=== PATIENT | male | born 1960 | race Caucasian/White ===

== ENCOUNTER 2017-01-31 10:23 | Day surgery (SDC) | payer OTHER ==
[~2017-01-31] VITALS: Ht 170.2 cm; Wt 47.7 kg
[~2017-01-31 10:23] MED LIST: Advair 250/50 Diskus IH; BACTRIM,SEPT1 TABLET PO; Habitrol,Nicoderm CQ TD; Levaquin PO; Maxipime IV; PENNSAID112 GM TP; PREDNISONE1 MG PO; PREDNISONE10 MG PO; PROVENTIL HFA6.7 GM IH; Phenergan W/Codeine PO; Proventil,Ventolin H IH; QVAR 80 MCG IN7.3 GM IH; ROBITUSSIN AC,T10 ML PO; SPIRIVA1 INHALATI IH; ZYRTEC10 M2 PO; predniSONE PO
[2017-01-31 10:48] VITALS: BP 114/84
[2017-01-31 12:40] VITALS: BP 81/54
[2017-01-31 13:35] VITALS: BP 94/67
== END 2017-01-31 13:35 | disposition home or self-care (01) ==
LOC: SDC 10:23
PROC: 01N53ZZ Release Median Nerve, Percutaneous Approach (ICD-10-PCS; principal; 2017-01-31)
DX: G56.01 Carpal tunnel syndrome, right upper limb (principal); J44.9 Chronic obstructive pulmonary disease, unspecified; M19.90 Unspecified osteoarthritis, unspecified site; J45.909 Unspecified asthma, uncomplicated; F17.200 Nicotine dependence, unspecified, uncomplicated; Z68.1 Body mass index [BMI] 19.9 or less, adult
CPT/HCPCS: J0690; J2250; S0020

== ENCOUNTER 2017-02-11 20:17 | Inpatient (IN) | payer OTHER ==
[~2017-02-11] VITALS: Ht 170.2 cm; Wt 45.0 kg
[2017-02-11 20:41] LABS: MCH 28.2 PG (29.0-34.0); MCHC 31.6 G/DL (30.0-36.0); MCV 89.2 FL (86-99); MEAN PLAT.VOLUME 8.5 uM^3 (9.0-12.4); PLATELET COUNT 437 K/uL (156-360); RBC DIS.WIDTH-CV 15.9 % (11.8-14.6); RED BLOOD COUNT 4.82 M/uL (4.00-5.50)
[2017-02-11 20:42] LABS: CARBON DIOXIDE (BICARBONATE) 36.2 MEQ/L (20-31)
[2017-02-11 20:44] LABS: WHITE BLOOD COUNT 12.6 K/uL (4.1-10.2)
[2017-02-11 20:55] LABS: CHLORIDE 97 mEq/L (99-109); POTASSIUM 3.9 mEq/L (3.7-5.4); SODIUM 139 mEq/L (136-147)
[2017-02-11 20:57] LABS: GLUCOSE 162 mg/dL (70-99)
[2017-02-11 20:58] LABS: ANION GAP 11 MEQ/L (2-14)
[2017-02-11 21:01] LABS: GFR ESTIMATE (CALCULATED) > 59 mL/min/
[2017-02-11 21:02] LABS: UREA NITROGEN (BUN) 18 mg/dL (9-23)
[2017-02-11 21:09] LABS: TROP-I INTERPRETATION NEGATIVE; TROPONIN-I 0.01 ng/mL (0.0-0.30)
[2017-02-11] MEDS ORDERED: SPIRIVA1 INHALATI IH (21:39)
[2017-02-11] MEDS ORDERED: PROVENTIL HFA6.7 GM IH (21:39)
[2017-02-11] MEDS ORDERED: PREDNISONE10 MG PO ×2 (21:40→21:41)
[2017-02-11] MEDS ORDERED: LEVAQUIN750 MG PO (21:41)
[2017-02-12 03:43] VITALS: BP 98/65
[2017-02-12 04:52] LABS: HEMATOCRIT 35.9 % (38.0-50.0); MCH 27.8 PG (29.0-34.0); MCHC 30.9 G/DL (30.0-36.0); MEAN PLAT.VOLUME 8.5 uM^3 (9.0-12.4); PLATELET COUNT 349 K/uL (156-360); RBC DIS.WIDTH-CV 15.9 % (11.8-14.6); RED BLOOD COUNT 3.99 M/uL (4.00-5.50); WHITE BLOOD COUNT 9.7 K/uL (4.1-10.2)
[2017-02-12 05:05] LABS: CHLORIDE 103 mEq/L (99-109); POTASSIUM 4.2 mEq/L (3.7-5.4); SODIUM 137 mEq/L (136-147)
[2017-02-12 05:07] LABS: GLUCOSE 187 mg/dL (70-99)
[2017-02-12 05:08] LABS: ANION GAP 6 MEQ/L (2-14)
[2017-02-12 05:11] LABS: GFR ESTIMATE (CALCULATED) > 59 mL/min/
[2017-02-12 05:12] LABS: UREA NITROGEN (BUN) 17 mg/dL (9-23)
[2017-02-12 08:15] VITALS: BP 90/60
[2017-02-12 11:53] VITALS: BP 101/65
[2017-02-12 15:46] VITALS: BP 100/58
[2017-02-12 20:09] VITALS: BP 100/59
[2017-02-12 23:59] VITALS: BP 105/62
[2017-02-13 03:48] VITALS: BP 125/79
[2017-02-13 07:51] VITALS: BP 103/66
[2017-02-13] MEDS ORDERED: CEFTIN500 MG PO (11:24)
[2017-02-13] MEDS ORDERED: OXYCODONE-APAP1 EACH PO (11:24)
[2017-02-13 11:27] VITALS: BP 111/62
== END 2017-02-13 12:30 | disposition home or self-care (01) | DRG 190 ==
LOC: EME 20:17 → EDOF 02-12 01:25 → 3EAST 02-12 03:26
PROVIDERS: Emergency Medicine; Family Medicine
DX: J44.1 Chronic obstructive pulmonary disease with (acute) exacerbation (principal); J96.00 Acute respiratory failure, unspecified whether with hypoxia or hypercapnia; J84.10 Pulmonary fibrosis, unspecified; E78.5 Hyperlipidemia, unspecified; F17.200 Nicotine dependence, unspecified, uncomplicated
CPT/HCPCS: 71010; 80048; 82803; 83605; 83880; 84484; 85027; 87040; 93005; 94002; 94640; 94640 76; 94799; 99202; 99281; 99284; J1100; J2930; J7030

== ENCOUNTER 2017-02-20 02:41 | Inpatient (IN) | payer OTHER ==
[~2017-02-20] VITALS: Ht 170.2 cm; Wt 45.3 kg
[~2017-02-20 02:41] MED LIST changes: +CEFTIN500 MG PO; +LEVAQUIN750 MG PO; +OXYCODONE-APAP1 EACH PO
[2017-02-20 03:17] LABS: EOSINOPHIL (%) 0.6 % (0-5); EOSINOPHIL COUNT 0.1 K/uL (0-0.3); HEMATOCRIT 40.3 % (38.0-50.0); IMMATURE GRANULOCYTE (%) 0.7 % (0.0-0.7); IMMATURE GRANULOCYTE COUNT 0.1 K/uL; INSTRUMENT ABS NEUTROPHIL CT 17.3 K/uL; LYMPHOCYTE COUNT 1.4 K/uL (1.0-2.8); MCH 28.9 PG (29.0-34.0); MCHC 32.8 G/DL (30.0-36.0); MCV 88.2 FL (86-99); MEAN PLAT.VOLUME 8.3 uM^3 (9.0-12.4); MONOCYTE (%) 7.6 % (3-12); MONOCYTE COUNT 1.6 K/uL (0-0.8); NEUTROPHIL (%) 84.2 % (45-76); NEUTROPHIL COUNT 17.3 K/uL (1.8-6.4); PLATELET COUNT 371 K/uL (156-360); RBC DIS.WIDTH-CV 15.7 % (11.8-14.6); RBC DIS.WIDTH-SD 50.6 % (39-53); RED BLOOD COUNT 4.57 M/uL (4.00-5.50); WHITE BLOOD COUNT 20.6 K/uL (4.1-10.2)
[2017-02-20 03:25] LABS: CHLORIDE 93 mEq/L (99-109); POTASSIUM 5.3 mEq/L (3.7-5.4); SODIUM 131 mEq/L (136-147)
[2017-02-20 03:26] LABS: D-DIMER ELISA 1.53 mg/L FEU (< 0.57); GLUCOSE 98 mg/dL (70-99)
[2017-02-20 03:28] LABS: ANION GAP 12 MEQ/L (2-14)
[2017-02-20 03:30] LABS: GFR ESTIMATE (CALCULATED) > 59 mL/min/
[2017-02-20 03:31] LABS: UREA NITROGEN (BUN) 14 mg/dL (9-23)
[2017-02-20 03:36] LABS: TROP-I INTERPRETATION NEGATIVE; TROPONIN-I < 0.01 ng/mL (0.0-0.30)
[2017-02-20 12:11] LABS: INTER. NORMALIZED RATIO 1.2; PTT 33.1 (25-32)
[2017-02-20 12:18] VITALS: BP 100/62
[2017-02-20 13:15] VITALS: BP 100/62
[2017-02-20 23:38] VITALS: BP 120/57
[2017-02-21 07:07] LABS: EOSINOPHIL (%) 0.1 % (0-5); HEMATOCRIT 33.2 % (38.0-50.0); IMMATURE GRANULOCYTE COUNT 0.2 K/uL; INSTRUMENT ABS NEUTROPHIL CT 15.4 K/uL; MCH 27.8 PG (29.0-34.0); MCHC 31.3 G/DL (30.0-36.0); MCV 88.8 FL (86-99); MEAN PLAT.VOLUME 8.5 uM^3 (9.0-12.4); MONOCYTE (%) 6.6 % (3-12); MONOCYTE COUNT 1.2 K/uL (0-0.8); NEUTROPHIL (%) 86.6 % (45-76); NEUTROPHIL COUNT 15.4 K/uL (1.8-6.4); PLATELET COUNT 322 K/uL (156-360); RBC DIS.WIDTH-CV 16.3 % (11.8-14.6); RBC DIS.WIDTH-SD 53.1 % (39-53); RED BLOOD COUNT 3.74 M/uL (4.00-5.50); WHITE BLOOD COUNT 17.8 K/uL (4.1-10.2)
[2017-02-21 07:09] LABS: ALKALINE PHOSPHATASE 67 IU/L (3-129); ANION GAP 6 MEQ/L (2-14); CHLORIDE 96 MEQ/L (99-109); GFR ESTIMATE (CALCULATED) > 59 mL/min/; GLUCOSE 131 mg/dL (70-99); MAGNESIUM 1.9 mg/dl (1.3-2.7); SAMPLE HEMOLYSIS CHECK 0; SAMPLE ICTERIC CHECK 0; SAMPLE LIPEMIA CHECK 0; SODIUM 133 MEQ/L (136-147); TOTAL BILIRUBIN 0.2 MG/DL (0.0-1.0); UREA NITROGEN (BUN) 12 mg/dL (9-23)
[2017-02-21 07:15] LABS: POTASSIUM 4.1 MEQ/L (3.7-5.4)
[2017-02-21 07:26] LABS: Estimated Average Glucose 134 mg/dL (70-123); HEMOGLOBIN A1c (GLYCOHEMOGLOB) 6.3 % HGB (Below 5.7)
[2017-02-21 08:06] LABS: INTACT PARATHYROID HORMONE 22 pg/mL (10-69)
[2017-02-21 08:51] VITALS: BP 111/59
[2017-02-21 17:50] VITALS: BP 109/68
[2017-02-21 23:34] VITALS: BP 101/57
[2017-02-22 06:39] LABS: EOSINOPHIL (%) 0.3 % (0-5); EOSINOPHIL COUNT 0.1 K/uL (0-0.3); HEMATOCRIT 38.6 % (38.0-50.0); IMMATURE GRANULOCYTE (%) 0.6 % (0.0-0.7); IMMATURE GRANULOCYTE COUNT 0.1 K/uL; INSTRUMENT ABS NEUTROPHIL CT 16.7 K/uL; LYMPHOCYTE COUNT 1.1 K/uL (1.0-2.8); MCH 27.9 PG (29.0-34.0); MCHC 30.3 G/DL (30.0-36.0); MCV 91.9 FL (86-99); MEAN PLAT.VOLUME 8.6 uM^3 (9.0-12.4); MONOCYTE (%) 5.9 % (3-12); MONOCYTE COUNT 1.1 K/uL (0-0.8); NEUTROPHIL (%) 87.4 % (45-76); NEUTROPHIL COUNT 16.7 K/uL (1.8-6.4); PLATELET COUNT 348 K/uL (156-360); RBC DIS.WIDTH-CV 16.3 % (11.8-14.6); RBC DIS.WIDTH-SD 55.5 % (39-53); WHITE BLOOD COUNT 19.1 K/uL (4.1-10.2)
[2017-02-22 07:21] LABS: ANION GAP 6 MEQ/L (2-14); CHLORIDE 97 MEQ/L (99-109); GFR ESTIMATE (CALCULATED) > 59 mL/min/; SAMPLE HEMOLYSIS CHECK 0; SAMPLE ICTERIC CHECK 0; SAMPLE LIPEMIA CHECK 0; SODIUM 136 MEQ/L (136-147); UREA NITROGEN (BUN) 7 mg/dL (9-23)
[2017-02-22 07:25] LABS: GLUCOSE 90 mg/dL (70-99)
[2017-02-22 08:38] VITALS: BP 90/58
[2017-02-22 16:40] VITALS: BP 90/60
[2017-02-22 18:57] VITALS: BP 102/58
[2017-02-22 20:32] LABS: QGTB-NIL 0.02 IU/mL (())
[2017-02-22 23:12] VITALS: BP 108/55
[2017-02-23 03:58] VITALS: BP 108/57
[2017-02-23 08:06] VITALS: BP 102/67
[2017-02-23] MEDS ORDERED: PREDNISONE10 MG PO ×2 (11:34→17:56)
[2017-02-23] MEDS ORDERED: BACTRIM,SEPT1 TABLET PO (11:36)
[2017-02-23] MEDS ORDERED: OXYCODONE-APAP1 EACH PO (11:37)
[2017-02-23] MEDS ORDERED: PENNSAID112 GM TP (11:38)
[2017-02-23] MEDS ORDERED: ZYRTEC10 M3 PO (11:38)
[2017-02-23] MEDS ORDERED: QVAR 80 MCG IN7.3 GM IH (11:39)
[2017-02-23] MEDS ORDERED: SPIRIVA1 INHALATI IH (11:40)
[2017-02-23] MEDS ORDERED: PROVENTIL HFA6.7 GM IH (11:41)
[2017-02-23 17:55] LABS: M. pneumoniae Ab, IgG 2.11 (<=0.90)
[2017-02-23] MEDS ORDERED: TIZANIDINE HCL4 MG PO (17:55)
[2017-02-23] MEDS ORDERED: DIFLUCAN200 MG PO (17:57)
[2017-02-23] MEDS ORDERED: NICOTINE PATCH1 EAC1 TD (18:03)
== END 2017-02-23 19:14 | disposition home or self-care (01) | DRG 191 ==
LOC: EME → EDBD 02:41 → EME 02:41 → 5EAST 06:40 → EDOF 06:40 → 5EAST 11:59
PROVIDERS: Emergency Medicine; Family Medicine
DX: J44.1 Chronic obstructive pulmonary disease with (acute) exacerbation (principal); R04.2 Hemoptysis; J44.0 Chronic obstructive pulmonary disease with (acute) lower respiratory infection; J20.9 Acute bronchitis, unspecified; J84.10 Pulmonary fibrosis, unspecified; G89.4 Chronic pain syndrome; M25.512 Pain in left shoulder; E83.51 Hypocalcemia; R07.89 Other chest pain; E78.5 Hyperlipidemia, unspecified; F17.210 Nicotine dependence, cigarettes, uncomplicated
CPT/HCPCS: 71010; 71275; 80048; 80053; 82330; 83036; 83605; 83735; 83880; 83970; 84100; 84484; 85002; 85025; 85379; 85610; 85651; 85730; 86038; 86430; 86480 90; 86713 90; 86738 90; 87040; 87070; 87102; 87103; 87106; 87116; 87205; 87206; 93005; 94640; 94640 76; 94760; 94799; 99202; 99281; 99285; J1100; J1956; J2270; J3475; J7512; J7644